=== PATIENT | female | born 1960 | race Caucasian/White ===

== ENCOUNTER 2016-11-07 09:12 | Observation (INO) | payer MEDICARE, MEDICAID ==
[2016-11-07 09:12] VITALS: BMI 31.8
--- NOTE | 2016-11-07 09:41 | ED PDOC ---
Arrival/HPI - General Time Seen by Provider: 11/07/16 09:19 Historian: Patient - History of Present Illness Narrative History of Present Illness (Text): 11/07/16 09:35 Alyson Jenkins is a 56 year old female, whose past medical history includes hypertension, hypercholesterolemia, who presents to the emergency department complaining of left sided chest pain since earlier this morning at around 04: 00. Patient reports never having this pain before and it becomes worse with movement. Patient denies any headache, abdominal pain, nausea, vomiting, diarrhea, shortness of breath, or fever. Patient notes the pain does not radiate anywhere else and states having a chronic cough. No other complaints were made. PMD: Dr. Ross Time/Duration: 4-6 hours Symptom Onset: Sudden Symptom Course: Unchanged Modifying Factors (Text): pain on palpation and worse with movement Associated Symptoms (Text): chronic cough. no acute symptoms Past Medical History - Provider Review Nursing Documentation Reviewed: Yes - Infectious Disease Hx of Infectious Diseases: None - Tetanus Immunization Tetanus Immunization: Unknown - Cardiac Hx Hypertension: Yes - Psychiatric Hx Psychophysiologic Disorder: No Hx Anxiety: No Hx Bipolar Disorder: No Hx Depression: Yes Hx Emotional Abuse: No Hx Hallucinations: No Hx Panic Disorder: No Hx Post Traumatic Stress Disorder: No Hx Psychosis: No Hx Physical Abuse: No Hx Schizophrenia: No Hx Sexual Abuse: No Hx Substance Use: No - Surgical History Hx Cholecystectomy: Yes - Anesthesia Hx Anesthesia: Yes Hx Anesthesia Reactions: No Hx Malignant Hyperthermia: No - Suicidal Assessment Feels Threatened In Home Enviroment: No Family/Social History - Physician Review Nursing Documentation Reviewed: Yes Family/Social History: Unknown Family HX Smoking Status: Never Smoked Hx Alcohol Use: No Hx Substance Use: No Hx Substance Use Treatment: No Allergies/Home Meds Allergies/Adverse Reactions: Allergies No Known Allergies Allergy (Verified 07/18/11 11:07) Home Medications: Home Meds Medication Instructions Recorded Confirmed Acetaminophen/Butalbital/Caf 1 tab PO DAILY 09/16/11 09/30/14 [Fioricet 325 mg-50 mg-40 mg] Bp Meds 09/16/11 09/30/14 Rosuvastatin Calcium [Crestor] 10 mg PO DAILY 09/16/11 09/30/14 Review of Systems - Review of Systems Constitutional: absent: Fevers Respiratory: Cough (chronic). absent: SOB Cardiovascular: Chest Pain (left sided ) Gastrointestinal: absent: Abdominal Pain, Diarrhea, Vomiting Genitourinary Female: absent: Dysuria, Frequency Neurological: absent: Headache Physical Exam Vital Signs Reviewed: Yes Vital Signs Temp Pulse Pulse Resp BP BP Pulse Ox 11/07/16 09:37 85 184/107 H 11/07/16 09:26 97.6 F 86 18 184/107 H 100 Temperature: Afebrile Blood Pressure: Hypertensive Pulse: Regular Respiratory Rate: Normal Appearance: Positive for: Well-Appearing, Non-Toxic, Comfortable Pain Distress: None Mental Status: Positive for: Alert and Oriented X 3 - Systems Exam Head: Present: Atraumatic, Normocephalic Pupils: Present: PERRL Extroacular Muscles: Present: EOMI Conjunctiva: Present: Normal Respiratory/Chest: Present: Clear to Auscultation, Good Air Exchange. No: Respiratory Distress, Accessory Muscle Use Cardiovascular: Present: Regular Rate and Rhythm, Normal S1, S2, Other (left sided tenderness). No: Murmurs Abdomen: Present: Normal Bowel Sounds. No: Tenderness, Distention, Peritoneal Signs Back: Present: Normal Inspection Upper Extremity: Present: Normal Inspection. No: Cyanosis, Edema Lower Extremity: Present: Normal Inspection. No: Edema Neurological: Present: GCS=15, CN II-XII Intact, Speech Normal Skin: Present: Warm, Dry, Normal Color. No: Rashes Psychiatric: Present: Alert, Oriented x 3, Normal Insight, Normal Concentration Medical Decision Making ED Course and Treatment: 11/07/16 Impression: 56 year old female with left sided chest wall tenderness. Differential Diagnosis included but are not limited to: costochondritis vs. pneumonia vs. ACS Plan: -- EKG -- Chest X-ray -- Urinalysis -- Aspirin -- Reassess and disposition Progress Notes: EKG: Ordered, reviewed, and independently interpreted the EKG. Rate : 85 BPM Rhythm : NSR Interpretation : No ST-segment elevations or depressions, no T-wave inversions, normal intervals. 11/07/16 10:[address] Eva Liriano who agreed to place on tele-observation. R/o ACS. Troponin negative. CXR nl. EKG reviewed. BP improved to 169/83. - Lab Interpretations Lab Results: 11/07/16 08:45 11/07/16 08:45 Lab Results 11/07/16 10:32: Urine Color Yellow, Urine Appearance Clear, Urine pH 7.0, Ur Specific [place] 1.010, Urine Protein Negative, Urine Glucose (UA) Negative, Urine Ketones Negative, Urine Blood Trace-intact H, Urine Nitrate Negative, Urine Bilirubin Negative, Urine Urobilinogen 0.2, Ur Leukocyte Esterase Negative , Urine RBC Negative, Urine WBC Negative, Ur Epithelial Cells 0 - 2 11/07/16 08:45: Sodium 141, Potassium 4.4, Chloride 103, Carbon Dioxide 30, Anion Gap 12, BUN 12, Creatinine 0.9, Est GFR ( Amer) > 60, Est GFR (Non- Af Amer) > 60, Random Glucose 111 H, Calcium 9.4, Magnesium 2.0, Total Bilirubin 0.9, AST 40 H, ALT 29, Alkaline Phosphatase 92, Lactate Dehydrogenase 658, Total Creatine Kinase 272 H, CK-MB (CK-2) 1.6, CK-MB (CK-2) % Cancelled, Troponin I < 0.01, Total Protein 7.8, Albumin 4.4, Globulin 3.5, Albumin/ Globulin Ratio 1.3 11/07/16 08:45: WBC 6.5, RBC 4.50, Hgb 13.5, Hct 40.6, MCV 90.2, MCH 30.0, MCHC 33.3, RDW 13.5, Plt Count 240, MPV 10.4, Gran % 47.3 L, Lymph % (Auto) 42.3 H, [place] % (Auto) 6.9 H, Eos % (Auto) 2.3, Baso % (Auto) 1.2, Gran # 3.08, Lymph # 2.8, [place] # 0.5, Eos # 0.2, Baso # 0.08 I have reviewed the lab results: Yes - RAD Interpretation Radiology Orders: 11/07/16 09:37 CHEST PORTABLE [RAD] Stat - EKG Interpretation Interpreted by ED Physician: Yes Type: 12 lead EKG - Medication Orders Current Medication Orders: Discontinued Medications Aspirin (Aspirin) 325 mg PO STAT STA Stop: 11/07/16 09:38 Last Admin: 11/07/16 09:55 Dose: 325 mg - Scribe Statement The provider has reviewed the documentation as recorded by the Roderick Pineda Provider Scribe Attestation: All medical record entries made by the Scribe were at my direction and personally dictated by me. I have reviewed the chart and agree that the record accurately reflects my personal performance of the history, physical exam, medical decision making, and the department course for this patient. I have also personally directed, reviewed, and agree with the discharge instructions and disposition. Disposition/Present on Arrival - Present on Arrival Any Indicators Present on Arrival: No History of DVT/PE: No History of Uncontrolled Diabetes: No Urinary Catheter: No History Surgical Site Infection Following: None - Disposition Have Diagnosis and Disposition been Completed?: Yes Diagnosis: Chest pain, Hypertensive urgency Disposition: HOSPITALIZED Disposition Time: 10:34 Patient Plan: Observation Condition: FAIR
[2016-11-07 10:04] LABS: BASO # 0.08 K/mm3 (0.0-2.0); BASO % 1.2 % (0.0-3.0); EOS # 0.2 (0.0-0.7); EOS % 2.3 % (1.5-5.0); GRAN # 3.08 (1.4-6.5); GRAN % 47.3 % (50.0-68.0); HEMATOCRIT 40.6 % (36.0-48.0); LYMPH # 2.8 (1.2-3.4); LYMPH % 42.3 % (22.0-35.0); MEAN CELL VOLUME 90.2 fl (80.0-105.0); MEAN CORPUSCULAR HGB CONC 33.3 g/dl (31.0-37.0); MEAN PLATELET VOLUME 10.4 fl (7.0-11.0); MONO # 0.5 (0.1-0.6); MONO % 6.9 % (1.0-6.0); RED CELL DISTRIBUTION WIDTH 13.5 % (11.5-14.5); WHITE BLOOD COUNT 6.5 10^3/ul (4.5-11.0)
[2016-11-07 10:07] LABS: ALB/GLOB RATIO 1.3 (1.1-1.8); ALKALINE PHOSPHATASE 92 U/L (38-126); ALT/SGPT 29 U/L (7-56); AST/SGOT 40 U/L (14-36); BILIRUBIN,TOTAL 0.9 mg/dL (0.2-1.3); BLOOD UREA NITROGEN 12 mg/dL (7-21); CALCIUM 9.4 mg/dL (8.4-10.5); CARBON DIOXIDE 30 mmol/L (21-33); CHLORIDE 103 mmol/L (98-107); GFR AFRICAN-AMERICAN > 60; GLUCOSE,RANDOM 111 mg/dL (70-110); SODIUM 141 mmol/L (132-148); TOTAL PROTEIN 7.8 g/dL (5.8-8.3)
[2016-11-07 10:12] LABS: POTASSIUM 4.4 mmol/L (3.6-5.0)
[2016-11-07 10:21] LABS: TROPONIN I < 0.01 ng/mL
[2016-11-07 10:37] LABS: URINE BILIRUBIN NEGATIVE (NEGATIVE); URINE BLOOD TRACE-INTACT (NEGATIVE); URINE GLUCOSE (UA) NEGATIVE (NEGATIVE); URINE KETONE NEGATIVE (NEGATIVE); URINE LEUKOCYTE ESTERASE NEGATIVE Leu/uL (NEGATIVE); URINE PROTEIN NEGATIVE mg/dL (<30 mg/dL); URINE UROBILINOGEN 0.2 E.U./dL (<1 E.U./dL)
[2016-11-07 10:38] LABS: URINE APPEARANCE CLEAR (CLEAR); URINE COLOR YELLOW (YELLOW)
[2016-11-07 10:42] LABS: URINE EPITHELIAL CELLS 0 - 2 /hpf (0-5); URINE RBC NEGATIVE /hpf (0-2); URINE WBC NEGATIVE /hpf (0-6)
--- NOTE | 2016-11-07 11:07 | RAD ---
HISTORY: chest pain COMPARISON: No prior. FINDINGS: LUNGS: No active pulmonary disease. PLEURA: No significant pleural effusion identified, no pneumothorax apparent. CARDIOVASCULAR: Normal. OSSEOUS STRUCTURES: No significant abnormalities. VISUALIZED UPPER ABDOMEN: Normal. OTHER FINDINGS: None. IMPRESSION: No active disease.
--- NOTE | 2016-11-07 11:19 | CP.PCM.HP ---
<Hi Bethea - Last Filed: 11/07/16 11:57> History of Present Illness - History of Present Illness History of Present Illness: Hi Bethea DO, PGY-1, Hospitalist Service 56 year old female with a past medical history of hypertension and dyslipidemia who presents with one day duration of chest pain. The pain is in the left parasternal region and left shoulder,pressure-like in quality, constant, scaled 7/10 in severity, worsened with left arm movement, and not associated with nausea, diaphoresis, exertion, dyspnea, or palpiations. Of note , patient has not been able to take her usual blood pressure medication for the past two weeks. She does report shortness of breath when going up 5 flights of stairs and states she has a chronic non-productive cough. PMD: Dr. Ross PMH: hypertension, dyslipidemia PSH: Cholecystectomy Allergies: NKDA Family History: DM II Medications: Contacted [facility] - Lisinopril 40 mg PO daily - Metoprolol Tartarate 25 mg PO daily - Losartan 100 mg PO daily - Hydrochlorothizaide 12.5 mg PO daily - Lipitor 40 HS daily - Patient was also prescribed 14 days of Clarithromycin 500/Amoxicillan x/ Omeprazole on 09/20/16 by a GI doctor, likely for H.pylori eradication Social: , stays at home, has 3 children, 1 normal vaginal delivery, 2 C- sections, denies tobacco, alcohol, or illicit drug use. Present on Admission - Present on Admission Any Indicators Present on Admission: No Review of Systems - Constitutional Constitutional: As Per HPI. absent: Anorexia, Daytime Sleepiness, Frequent Falls - EENT Eyes: absent: Blurred Vision, Discharge, Dry Eye Ears: absent: Decreased Hearing, Abnormal Hearing, Disequilibrium Nose/Mouth/Throat: absent: Change in Voice, Hoarsness, Mouth Lesions - Breasts Breasts: absent: Change in Shape, Nipple Inversion, Skin Changes - Cardiovascular Cardiovascular: Chest Pain. absent: Diaphoresis, Dyspnea, Irregular Heart Rhythm, Leg Edema - Respiratory Respiratory: Cough. absent: Dyspnea, Hemoptysis, Dyspnea on Exertion - Gastrointestinal Gastrointestinal: Dyspepsia, Heartburn. absent: Diarrhea - Genitourinary Genitourinary: absent: Change in Urinary Stream, Nocturia, Urinary Incontinence - Menstruation Menstruation: absent: Cycle Variable, No Menses for 6 Months - Musculoskeletal Musculoskeletal: As Per HPI - Integumentary Integumentary: absent: Alopecia, Changing Lesions, Skin Ulcer - Neurological Neurological: absent: Dizziness, Numbness, Paresthesias, Radicular Pain - Psychiatric Psychiatric: absent: Behavioral Changes, Depression, Homicidal Ideation - Endocrine Endocrine: absent: Change in Body Appearance, Change in Libido, Excessive Sweating - Hematologic/Lymphatic Hematologic: absent: Easy Bleeding, Easy Bruising, Lymphadenopathy Past Patient History - Infectious Disease Hx of Infectious Diseases: None - Tetanus Immunizations Tetanus Immunization: Unknown - Past Social History Smoking Status: Never Smoked - CARDIAC Hx Hypertension: Yes - PULMONARY Hx Respiratory Disorders: No - NEUROLOGICAL Hx Neurological Disorder: No - HEENT Hx HEENT Problems: No - RENAL Hx Chronic Kidney Disease: No - ENDOCRINE/METABOLIC Hx Endocrine Disorders: No - HEMATOLOGICAL/ONCOLOGICAL Hx Blood Disorders: No - INTEGUMENTARY Hx Dermatological Problems: No - MUSCULOSKELETAL/RHEUMATOLOGICAL Hx Musculoskeletal Disorders: No - GASTROINTESTINAL Hx Gastrointestinal Disorders: No - GENITOURINARY/GYNECOLOGICAL Hx Genitourinary Disorders: No - PSYCHIATRIC Hx Psychophysiologic Disorder: No Hx Anxiety: No Hx Bipolar Disorder: No Hx Depression: Yes Hx Emotional Abuse: No Hx Hallucinations: No Hx Panic Symptoms: No Hx Post Traumatic Stress Disorder: No Hx Psychosis: No Hx Physical Abuse: No Hx Schizophrenia: No Hx Sexual Abuse: No Hx Substance Use: No - SURGICAL HISTORY Hx Cholecystectomy: Yes - ANESTHESIA Hx Anesthesia: Yes Hx Anesthesia Reactions: No Hx Malignant Hyperthermia: No Meds Allergies/Adverse Reactions: Allergies Allergy/AdvReac Type Severity Reaction Status Date / Time No Known Allergies Allergy Verified 07/18/11 11:07 Physical Exam - Constitutional Appears: Well, No Acute Distress - Head Exam Head Exam: ATRAUMATIC, NORMOCEPHALIC - Eye Exam Eye Exam: Normal appearance - ENT Exam ENT Exam: Mucous Membranes Moist, Normal Oropharynx - Neck Exam Neck exam: Positive for: Normal Inspection. Negative for: Tenderness, Thyromegaly - Respiratory Exam Respiratory Exam: Clear to Auscultation Bilateral, NORMAL BREATHING PATTERN. absent: Rales - Cardiovascular Exam Cardiovascular Exam: RRR, +S1, +S2 - GI/Abdominal Exam GI & Abdominal Exam: Normal Bowel Sounds, Soft. absent: Rebound, Rigid - Extremities Exam Extremities exam: Positive for: normal capillary refill, normal inspection, pedal pulses present. Negative for: calf tenderness, pedal edema - Back Exam Back exam: NORMAL INSPECTION. absent: CVA tenderness (L), CVA tenderness (R) - Neurological Exam Neurological exam: Alert, CN II-XII Intact, Oriented x3 - Psychiatric Exam Psychiatric exam: Normal Affect, Normal Mood - Skin Skin Exam: Dry, Intact, Normal Color, Warm Results - Vital Signs Recent Vital Signs: Last Vital Signs Temp 97.6 F 11/07/16 09:26 Pulse 74 11/07/16 11:13 Resp 18 11/07/16 11:13 BP 167/95 H 11/07/16 11:13 Pulse Ox 99 11/07/16 11:13 - Labs Result Diagrams: 11/07/16 08:45 11/07/16 08:45 - EKG Data EKG shows normal: Sinus rhythm Rate: Normal Assessment & Plan - Assessment and Plan (Free Text) Assessment: 56 year old female with a past medical history of hypertension and dyslipidemia who presents with chest pain and left arm/shoulder pain. Initial EKG and troponins were negative for ACS. Patient will be admitted to telemetry for observation and further diagnostic testing. Cardiology is also consulted. Plan: 1) Chest pain r/o ACS - Initial EKG showed NSR without ST-T wave changes - Initial troponin was (-), will trend q8h x 2 -Cardiology, Dr. Ortiz, consulted - Transthoracic Echocardiogram ordered - Patient admitted to telemetry for cardiac monitoring - TSH, Lipid Panel, and HbA1c ordered 2) Hypertension - Metoprolol 25 PO daily - Losartan 100 mg PO daily - Lisinopril 40 mg - Hydrochlorothiazide 12.5 3) Dyslipidemia - Lipid panel ordered, pending results - Continue with home medication Lipitor 40 mg DIN 4) GI/DVT prophylaxis: Protonix and SCD - Date & Time Date: 11/07/16 Time: 12:10 <Fabien Liriano - Last Filed: 11/07/16 15:24> Results - Vital Signs Recent Vital Signs: Last Vital Signs Temp 97.6 F 11/07/16 12:34 Pulse 61 11/07/16 14:00 Resp 20 11/07/16 12:34 BP 181/106 H 11/07/16 13:13 Pulse Ox 98 11/07/16 12:34 - Labs Result Diagrams: 11/07/16 08:45 11/07/16 08:45 Labs: Laboratory Results - last 24 hr 11/07/16 11/07/16 11:55 11:55 Triglycerides 83 Cholesterol 222 H LDL Cholesterol Direct 158 H HDL Cholesterol 51 TSH 3rd Generation 1.65 Attending/Attestation - Attestation I have personally seen and examined this patient.: Yes I have fully participated in the care of the patient.: Yes I have reviewed all pertinent clinical information: Yes Notes (Text): I have seen and examined the patient at bedside. Agree with the note above with the following additions/ exceptions: Briefly this is 56 year old female with history of HTN, dyslipidemia, cholecystectomy who presented for evaluation of chest pain. First set of troponin is negative. EKG showed prolong QT however no ST or T wave abnormalities were seen. Echocardiogram is pending. Patient will be observed in telemetry floor. Will order d dimer, monitor serial cardiac iso and EKG. BP was noted to be high. Patient also has some musculoskeletal pain. Will start naproxen and flexeril prn. Will restart her antihypertensives. Upon discharge patient will follow up with Dr Ross. Dr Fabien Liriano
[2016-11-07 12:08] LABS: CHOLESTEROL 222 mg/dL (130-200)
[2016-11-07] MEDS: Pantoprazole 20 mg EC Tab PO SCH (12:11)
[2016-11-07] MEDS ORDERED: Pneumococcal 23-Valent Vaccine IM ONE (15:34)
--- NOTE | 2016-11-07 18:56 | CARD ---
APPROVED REPORT EXAM: Two-dimensional and M-mode echocardiogram with Doppler and color Doppler. INDICATION Chest Pain 2D DIMENSIONS Left Atrium (2D)4.0 (1.6-4.0cm)IVSd1.0 (0.7-1.1cm) LVDd4.6 (3.9-5.9cm)PWd0.9 (0.7-1.1cm) LVDs3.3 (2.5-4.0cm)FS (%) 28.7 % LVEF (%)55.4 (>50%) M-Mode DIMENSIONS Aortic Root3.20 (2.2-3.7cm)Aortic Cusp Exc.1.60 (1.5-2.0cm) Aortic Valve AoV Peak Qruxiixa271.0cm/Elena Peak GR.9mmHg Mitral Valve MV E Osxvenkt980.0cm/sMV A Sufveyif260.0cm/sE/A ratio1.1 TDI Lateral E' Peak V7.70cm/sMedial E' Peak V8.48cm/sE/Lateral E'14.8 E/Medial E'13.4 Pulmonary Valve PV Peak Bcfmvoox12.2cm/sPV Peak Grad.2mmHg Tricuspid Valve TR Peak Gpsxumix404sn/sRAP [id number] Peak Gr.19mmHg [id number] LEFT VENTRICLE The left ventricle is normal size. There is normal left ventricular wall thickness. The left ventricular function is normal. The left ventricular ejection fraction is within the normal range. There is normal LV segmental wall motion. Transmitral Doppler flow pattern is Grade I-abnormal relaxation pattern. RIGHT VENTRICLE The right ventricle is normal size. There is normal right ventricular wall thickness. The right ventricular systolic function is normal. ATRIA The left atrium is borderline dilated. The right atrium size is normal. AORTIC VALVE The aortic valve is normal in structure. There is trace aortic regurgitation. There is no aortic valvular stenosis. MITRAL VALVE The mitral valve is mildly thickened. Mitral regurgitation is mild. TRICUSPID VALVE The tricuspid valve is normal in structure. PULMONIC VALVE There is trace pulmonic valvular regurgitation. GREAT VESSELS The aortic root is normal in size. PERICARDIAL EFFUSION There is no pericardial effusion. <Conclusion> The left ventricle is normal size. There is normal left ventricular wall thickness. The left ventricular function is normal. The left ventricular ejection fraction is within the normal range. There is normal LV segmental wall motion. Transmitral Doppler flow pattern is Grade I-abnormal relaxation pattern. Mitral regurgitation is mild.
--- NOTE | 2016-11-07 20:42 | CARD ---
APPROVED REPORT EKG Measurement Heart [id number] NM 156P12 [id number] <Conclusion> Normal sinus rhythm Nonspecific T wave abnormality Abnormal ECG
--- NOTE | 2016-11-07 20:54 | CARD ---
APPROVED REPORT EKG Measurement Heart [id number] CT 144P44 [id number] <Conclusion> Normal sinus rhythm Prolonged QT Abnormal ECG
--- NOTE | 2016-11-07 21:07 | CON ---
CARDIOLOGY CONSULTATION DATE: REASON FOR CONSULTATION: Chest pain. HISTORY OF PRESENT ILLNESS: The patient is 56 years old female, who has history of hypertension, hyperlipidemia who presented because of left-sided chest pain radiating to left shoulder. The patient denies any associated diaphoresis. PAST MEDICAL HISTORY: The patient is unaware of any prior cardiac history in the past. FAMILY HISTORY: The patient is unaware of any significant family history for coronary artery disease. SOCIAL HISTORY: The patient is nonsmoker and nondrinker. REVIEW OF SYSTEMS: No fever or chills. No vomiting. No diarrhea. MEDICATIONS: Aspirin 81 mg once a day, Cozaar 100 mg once a day, Lipitor 40 mg once a day, Lopressor 25 mg once a day, hydrochlorothiazide 12.5 mg once a day, and Protonix 20 mg once a day. PHYSICAL EXAMINATION: GENERAL: The patient is a middle-aged female, who does not appear to be in acute distress. VITAL SIGNS: Blood pressure 159/92, heart rate 73, temperature 97.6, respiration 20. HEENT: Normocephalic. NECK: No JVD. CHEST: Clear. HEART: S1 and S2, regular. ABDOMEN: Soft. EXTREMITIES: No edema. LABORATORY DATA: Hemoglobin and hematocrit, white count and platelet count are within normal limits. SMA-7 is within normal limits except for glucose of 111. Two sets of troponins are negative. Total cholesterol is 222. LDL cholesterol is 158. Both are elevated. TSH level is within normal limits. D-Dimer is within normal limit. EKG revealed sinus rhythm. ASSESSMENT: 1. Chest pain, myocardial infarction is ruled out. 2. Hypertension. 3. Hyperlipidemia. CONDITIONS: Continue current aspirin 81 mg once a day, Cozaar 100 mg once a day, Lipitor is 40 mg once a day, Lopressor 25 mg once a day, hydrochlorothiazide 12.5 mg once day. We will review the echocardiographic study that was performed today. Marlo Ortiz MD
[2016-11-08 06:57] VITALS: O2SAT 99
[2016-11-08 07:48] LABS: ALB/GLOB RATIO 1.3 (1.1-1.8); ALKALINE PHOSPHATASE 79 U/L (38-126); ALT/SGPT 33 U/L (7-56); AST/SGOT 27 U/L (14-36); BILIRUBIN,TOTAL 0.9 mg/dL (0.2-1.3); BLOOD UREA NITROGEN 18 mg/dL (7-21); CALCIUM 9.3 mg/dL (8.4-10.5); CARBON DIOXIDE 29 mmol/L (21-33); CHLORIDE 102 mmol/L (98-107); GFR AFRICAN-AMERICAN > 60; GLUCOSE,RANDOM 116 mg/dL (70-110); POTASSIUM 4.1 mmol/L (3.6-5.0); SODIUM 142 mmol/L (132-148); TOTAL PROTEIN 7.1 g/dL (5.8-8.3)
[2016-11-08] MEDS: Pantoprazole 20 mg EC Tab PO SCH (08:47)
--- NOTE | 2016-11-08 10:54 | CP.PCM.DIS ---
<Hi Bethea - Last Filed: 11/08/16 15:13> Provider - Provider Date of Admission: 11/07/16 10:34 Attending physician: Anand Chaudhry MD Primary care physician: NO PRIMARY CARE PROVIDER Consults: Dr. Ortiz Cardiology Time Spent in preparation of Discharge (in minutes): 33 Hospital Course - Lab Results Lab Results: Most Recent Lab Values WBC 6.5 10^3/ul (4.5-11.0) 11/07/16 08:45 RBC 4.50 10^6/uL (3.5-6.1) 11/07/16 08:45 Hgb 13.5 g/dL (12.0-16.0) 11/07/16 08:45 Hct 40.6 % (36.0-48.0) 11/07/16 08:45 MCV 90.2 fl (80.0-105.0) 11/07/16 08:45 MCH 30.0 pg (25.0-35.0) 11/07/16 08:45 MCHC 33.3 g/dl (31.0-37.0) 11/07/16 08:45 RDW 13.5 % (11.5-14.5) 11/07/16 08:45 Plt Count 240 10^3/uL (120.0-450.0) 11/07/16 08:45 MPV 10.4 fl (7.0-11.0) 11/07/16 08:45 Gran % 47.3 % (50.0-68.0) L 11/07/16 08:45 Lymph % (Auto) 42.3 % (22.0-35.0) H 11/07/16 08:45 [place] % (Auto) 6.9 % (1.0-6.0) H 11/07/16 08:45 Eos % (Auto) 2.3 % (1.5-5.0) 11/07/16 08:45 Baso % (Auto) 1.2 % (0.0-3.0) 11/07/16 08:45 Gran # 3.08 (1.4-6.5) 11/07/16 08:45 Lymph # 2.8 (1.2-3.4) 11/07/16 08:45 [place] # 0.5 (0.1-0.6) 11/07/16 08:45 Eos # 0.2 (0.0-0.7) 11/07/16 08:45 Baso # 0.08 K/mm3 (0.0-2.0) 11/07/16 08:45 D-Dimer, Quantitative 0.46 mg/L FEU (0-0.50) 11/07/16 15:30 Sodium 142 mmol/L (132-148) 11/08/16 06:05 Potassium 4.1 mmol/L (3.6-5.0) 11/08/16 06:05 Chloride 102 mmol/L (98-107) 11/08/16 06:05 Carbon Dioxide 29 mmol/L (21-33) 11/08/16 06:05 Anion Gap 15 (10-20) 11/08/16 06:05 BUN 18 mg/dL (7-21) 11/08/16 06:05 Creatinine 1.1 mg/dL (0.5-1.4) 11/08/16 06:05 Est GFR ( Amer) > 60 11/08/16 06:05 Est GFR (Non-Af Amer) 52 11/08/16 06:05 Random Glucose 116 mg/dL (70-110) H 11/08/16 06:05 Hemoglobin A1c 5.7 % (4.2-6.5) 11/07/16 11:55 Calcium 9.3 mg/dL (8.4-10.5) 11/08/16 06:05 Magnesium 2.0 mg/dL (1.7-2.2) 11/07/16 08:45 Total Bilirubin 0.9 mg/dL (0.2-1.3) 11/08/16 06:05 AST 27 U/L (14-36) 11/08/16 06:05 ALT 33 U/L (7-56) 11/08/16 06:05 Alkaline Phosphatase 79 U/L (38-126) 11/08/16 06:05 Lactate Dehydrogenase 658 U/L (333-699) 11/07/16 08:45 Total Creatine Kinase 272 U/L (35-230) H 11/07/16 08:45 CK-MB (CK-2) 1.6 ng/mL (0.0-3.6) 11/07/16 08:45 CK-MB (CK-2) % Cancelled 11/07/16 08:45 Troponin I < 0.01 ng/mL 11/07/16 15:30 Total Protein 7.1 g/dL (5.8-8.3) 11/08/16 06:05 Albumin 4.0 g/dL (3.0-4.8) 11/08/16 06:05 Globulin 3.1 gm/dL 11/08/16 06:05 Albumin/Globulin Ratio 1.3 (1.1-1.8) 11/08/16 06:05 Triglycerides 83 mg/dL (35-160) 11/07/16 11:55 Cholesterol 222 mg/dL (130-200) H 11/07/16 11:55 LDL Cholesterol Direct 158 mg/dL (0-129) H 11/07/16 11:55 HDL Cholesterol 51 mg/dL (29-60) 11/07/16 11:55 TSH 3rd Generation 1.65 mIU/mL (0.46-4.68) 11/07/16 11:55 Urine Color Yellow (YELLOW) 11/07/16 10:32 Urine Appearance Clear (CLEAR) 11/07/16 10:32 Urine pH 7.0 (4.7-8.0) 11/07/16 10:32 Ur Specific [place] 1.010 (1.005-1.035) 11/07/16 10:32 Urine Protein Negative mg/dL (<30 mg/dL) 11/07/16 10:32 Urine Glucose (UA) Negative mg/dL (NEGATIVE) 11/07/16 10:32 Urine Ketones Negative mg/dL (NEGATIVE) 11/07/16 10:32 Urine Blood Trace-intact (NEGATIVE) H 11/07/16 10:32 Urine Nitrate Negative (NEGATIVE) 11/07/16 10:32 Urine Bilirubin Negative (NEGATIVE) 11/07/16 10:32 Urine Urobilinogen 0.2 E.U./dL (<1 E.U./dL) 11/07/16 10:32 Ur Leukocyte Esterase Negative [place]/uL (NEGATIVE) 11/07/16 10:32 Urine RBC Negative /hpf (0-2) 11/07/16 10:32 Urine WBC Negative /hpf (0-6) 11/07/16 10:32 Ur Epithelial Cells 0 - 2 /hpf (0-5) 11/07/16 10:32 - Hospital Course Hospital Course: Hi Bethea DO, PGY-1, Hospitalist Service 56 year old female with a past medical history of hypertension and dyslipidemia who presents with chest pain and left arm/shoulder pain. Initial EKG and troponins x 2 were negative for ACS. On admission, the patient was also found to have an elevated blood pressure that was controlled by restarting her home anti-hypertensives. Patient was admitted to telemetry for observation and further diagnostic testing. Cardiology was also consulted. TTE was essentially normal. TSH and HbgA1c were within normal limits. Lipid panel confirmed dyslipidemia and the patient was discharged with the below written instruction, with her home medication re-prescribed,and given Protonix for GERD and Motrin PRN for musculoskeletal pain. - Date & Time of H&P Date of H&P: 11/08/16 Time of H&P: 11:30 Discharge Exam - Head Exam Head Exam: ATRAUMATIC, NORMOCEPHALIC - Eye Exam Eye Exam: EOMI, Normal appearance, PERRL Pupil Exam: NORMAL ACCOMODATION - ENT Exam ENT Exam: Mucous Membranes Moist, Normal Oropharynx - Neck Exam Neck exam: Normal Inspection - Respiratory Exam Respiratory Exam: Clear to PA & Lateral, NORMAL BREATHING PATTERN. absent: Rales - Cardiovascular Exam Cardiovascular Exam: RRR, +S1, +S2 - GI/Abdominal Exam GI & Abdominal Exam: Normal Bowel Sounds, Soft. absent: Guarding, Rebound - Extremities Exam Extremities exam: normal capillary refill, normal inspection, pedal pulses present - Back Exam Back exam: NORMAL INSPECTION. absent: CVA tenderness (L), CVA tenderness (R) - Neurological Exam Neurological exam: Alert, CN II-XII Intact, Oriented x3 - Psychiatric Exam Psychiatric exam: Normal Affect, Normal Mood - Skin Skin Exam: Dry, Intact, Normal Color, Warm - Additional Findings Additional findings: tenderness to palpation of the left parasternal border and epigastric region Discharge Plan - Discharge Medications Prescriptions: Losartan/Hydrochlorothiazide [Hyzaar 100-12.5 Tablet] 1 tab PO DAILY #30 tablet Metoprolol Tartrate [Lopressor] 25 mg PO DAILY #30 tab Ibuprofen [Motrin] 400 mg PO BID #12 tab Pantoprazole Sodium [Protonix] 40 mg PO DAILY #30 ect - Follow Up Plan Condition: FAIR Disposition: HOME/ ROUTINE Instructions: Chest Pain (DC), Hypertension (DC) Additional Instructions: 1) Follow-up with your PMD within one week. 2) Take Protonix first thing in the morning 1 hour before meal with 10 Oz of water. 3) Motrin 400 mg BID after a meal. Referrals: PCP,NO [Primary Care Provider] - <Anand Chaudhry - Last Filed: 11/08/16 17:37> Provider - Provider Date of Admission: 11/07/16 10:34 Attending physician: Anand Chaudhry MD Primary care physician: NO PRIMARY CARE PROVIDER Hospital Course - Lab Results Lab Results: Most Recent Lab Values WBC 7.1 10^3/ul (4.5-11.0) 11/08/16 11:30 RBC 4.60 10^6/uL (3.5-6.1) 11/08/16 11:30 Hgb 13.8 g/dL (12.0-16.0) 11/08/16 11:30 Hct 41.5 % (36.0-48.0) 11/08/16 11:30 MCV 90.2 fl (80.0-105.0) 11/08/16 11:30 MCH 30.0 pg (25.0-35.0) 11/08/16 11:30 MCHC 33.3 g/dl (31.0-37.0) 11/08/16 11:30 RDW 13.5 % (11.5-14.5) 11/08/16 11:30 Plt Count 244 10^3/uL (120.0-450.0) 11/08/16 11:30 MPV 10.4 fl (7.0-11.0) 11/08/16 11:30 Gran % 46.6 % (50.0-68.0) L 11/08/16 11:30 Lymph % (Auto) 45.7 % (22.0-35.0) H 11/08/16 11:30 [place] % (Auto) 4.9 % (1.0-6.0) 11/08/16 11:30 Eos % (Auto) 2.1 % (1.5-5.0) 11/08/16 11:30 Baso % (Auto) 0.7 % (0.0-3.0) 11/08/16 11:30 Gran # 3.31 (1.4-6.5) 11/08/16 11:30 Lymph # 3.3 (1.2-3.4) 11/08/16 11:30 [place] # 0.4 (0.1-0.6) 11/08/16 11:30 Eos # 0.2 (0.0-0.7) 11/08/16 11:30 Baso # 0.05 K/mm3 (0.0-2.0) 11/08/16 11:30 D-Dimer, Quantitative 0.46 mg/L FEU (0-0.50) 11/07/16 15:30 Sodium 142 mmol/L (132-148) 11/08/16 06:05 Potassium 4.1 mmol/L (3.6-5.0) 11/08/16 06:05 Chloride 102 mmol/L (98-107) 11/08/16 06:05 Carbon Dioxide 29 mmol/L (21-33) 11/08/16 06:05 Anion Gap 15 (10-20) 11/08/16 06:05 BUN 18 mg/dL (7-21) 11/08/16 06:05 Creatinine 1.1 mg/dL (0.5-1.4) 11/08/16 06:05 Est GFR ( Amer) > 60 11/08/16 06:05 Est GFR (Non-Af Amer) 52 11/08/16 06:05 Random Glucose 116 mg/dL (70-110) H 11/08/16 06:05 Hemoglobin A1c 5.7 % (4.2-6.5) 11/07/16 11:55 Calcium 9.3 mg/dL (8.4-10.5) 11/08/16 06:05 Magnesium 2.0 mg/dL (1.7-2.2) 11/07/16 08:45 Total Bilirubin 0.9 mg/dL (0.2-1.3) 11/08/16 06:05 AST 27 U/L (14-36) 11/08/16 06:05 ALT 33 U/L (7-56) 11/08/16 06:05 Alkaline Phosphatase 79 U/L (38-126) 11/08/16 06:05 Lactate Dehydrogenase 658 U/L (333-699) 11/07/16 08:45 Total Creatine Kinase 272 U/L (35-230) H 11/07/16 08:45 CK-MB (CK-2) 1.6 ng/mL (0.0-3.6) 11/07/16 08:45 CK-MB (CK-2) % Cancelled 11/07/16 08:45 Troponin I < 0.01 ng/mL 11/07/16 15:30 Total Protein 7.1 g/dL (5.8-8.3) 11/08/16 06:05 Albumin 4.0 g/dL (3.0-4.8) 11/08/16 06:05 Globulin 3.1 gm/dL 11/08/16 06:05 Albumin/Globulin Ratio 1.3 (1.1-1.8) 11/08/16 06:05 Triglycerides 83 mg/dL (35-160) 11/07/16 11:55 Cholesterol 222 mg/dL (130-200) H 11/07/16 11:55 LDL Cholesterol Direct 158 mg/dL (0-129) H 11/07/16 11:55 HDL Cholesterol 51 mg/dL (29-60) 11/07/16 11:55 TSH 3rd Generation 1.65 mIU/mL (0.46-4.68) 11/07/16 11:55 Urine Color Yellow (YELLOW) 11/07/16 10:32 Urine Appearance Clear (CLEAR) 11/07/16 10:32 Urine pH 7.0 (4.7-8.0) 11/07/16 10:32 Ur Specific [place] 1.010 (1.005-1.035) 11/07/16 10:32 Urine Protein Negative mg/dL (<30 mg/dL) 11/07/16 10:32 Urine Glucose (UA) Negative mg/dL (NEGATIVE) 11/07/16 10:32 Urine Ketones Negative mg/dL (NEGATIVE) 11/07/16 10:32 Urine Blood Trace-intact (NEGATIVE) H 11/07/16 10:32 Urine Nitrate Negative (NEGATIVE) 11/07/16 10:32 Urine Bilirubin Negative (NEGATIVE) 11/07/16 10:32 Urine Urobilinogen 0.2 E.U./dL (<1 E.U./dL) 11/07/16 10:32 Ur Leukocyte Esterase Negative [place]/uL (NEGATIVE) 11/07/16 10:32 Urine RBC Negative /hpf (0-2) 11/07/16 10:32 Urine WBC Negative /hpf (0-6) 11/07/16 10:32 Ur Epithelial Cells 0 - 2 /hpf (0-5) 11/07/16 10:32 Attending/Attestation - Attestation I have personally seen and examined this patient.: Yes I have fully participated in the care of the patient.: Yes I have reviewed all pertinent clinical information, including history, physical exam and plan: Yes Notes (Text): 11/08/16 17:33 Attending note: Patient seen and examined with resident. Patient is a 56 year old female with history of HTN, dyslipidemia, cholecystectomy who presented for evaluation of chest pain. left side of the chest is tender to touch. Most likely musculoskeletal pain. Cardiac enzymes 3 negative. Echocardiogram normal. Cardiology evaluation with Dr. Ortiz appreciated. Cleared by cardiology for discharge. Motrin for 2 days recommended. History of GERD/H. pylori treatment; Protonix prescription was given. Prescription for antihypertensives given. Upon discharge the patient will follow-up with PMD Dr. Claus Ross. Diagnosis; Atypical chest pain Hypertension GERD
[2016-11-08 11:37] LABS: BASO # 0.05 K/mm3 (0.0-2.0); BASO % 0.7 % (0.0-3.0); EOS # 0.2 (0.0-0.7); EOS % 2.1 % (1.5-5.0); GRAN # 3.31 (1.4-6.5); GRAN % 46.6 % (50.0-68.0); HEMATOCRIT 41.5 % (36.0-48.0); LYMPH # 3.3 (1.2-3.4); LYMPH % 45.7 % (22.0-35.0); MEAN CELL VOLUME 90.2 fl (80.0-105.0); MEAN CORPUSCULAR HGB CONC 33.3 g/dl (31.0-37.0); MEAN PLATELET VOLUME 10.4 fl (7.0-11.0); MONO # 0.4 (0.1-0.6); MONO % 4.9 % (1.0-6.0); RED CELL DISTRIBUTION WIDTH 13.5 % (11.5-14.5); WHITE BLOOD COUNT 7.1 10^3/ul (4.5-11.0)
[2016-11-08 13:09] VITALS: BP 149/93; PULSE 63; RESP 19; TEMP 98.3
--- NOTE | 2016-11-08 13:17 | PN ---
SUBJECTIVE: The patient denies any shortness of breath. She does report sharp chest discomfort that increases with deep breathing. PHYSICAL EXAMINATION: VITAL SIGNS: Blood pressure 119/64, heart rate 78, temperature 98.6, and respirations 20. HEENT: Normocephalic. CHEST: Clear. HEART: S1 and S2 regular. EXTREMITIES: No edema. LABORATORY DATA: Hemoglobin, hematocrit, white count, and platelet count are within normal limits. SMA-7 is within normal limits except for glucose of 116. Echocardiographic study revealed normal ventricular size, wall thickness and ejection fraction with grade I abnormal relaxation pattern. ASSESSMENT: 1. Atypical chest pain, myocardial infarction is ruled out. 2. Hypertension. RECOMMENDATIONS: The patient can be discharged on current aspirin, Cozaar, Lipitor, Lopressor, and hydrochlorothiazide. An outpatient stress test should be considered while the patient is following her physician. Marlo Ortiz MD Job # [id number]
== END 2016-11-08 16:35 | disposition home or self-care (01) ==
LOC: ED 09:12 → ERH 10:34 → 2RSO 12:43
PROVIDERS: ADMIT Hospitalist; ATTEND Internal Medicine
DX: R07.89 Other chest pain (principal); I10 Essential (primary) hypertension; K21.9 Gastro-esophageal reflux disease without esophagitis; I16.0 Hypertensive urgency; E78.5 Hyperlipidemia, unspecified; E78.00 Pure hypercholesterolemia, unspecified; E11.9 Type 2 diabetes mellitus without complications; Z79.82 Long term (current) use of aspirin; Z79.899 Other long term (current) drug therapy; Z90.49 Acquired absence of other specified parts of digestive tract; R05 Cough; F32.89 Other specified depressive episodes; R40.2412 Glasgow coma scale score 13-15, at arrival to emergency department
CPT/HCPCS: 36415; 71010; 80053; 80061; 81001; 82550; 82553; 83036; 83615; 83735; 84443; 84484; 85025; 85378; 93005; 93306; 99285; G0378

== ENCOUNTER 2018-04-10 11:50 | Outpatient (CLI) | payer MEDICARE, MEDICAID | END 2018-04-10 11:51 | disposition home or self-care (01) | LOC: LAB 11:50 ==

== ENCOUNTER → 2018-05-29 | Outpatient (CLI) | payer MEDICARE | LOC: RAD 10:50 ==

== ENCOUNTER 2018-07-03 10:16 | Outpatient (CLI) | payer MEDICARE, MEDICAID | END 2018-07-03 10:17 | disposition home or self-care (01) | LOC: RAD 10:16 ==

== ENCOUNTER 2018-07-14 11:00 | Inpatient (IN) | payer MEDICARE, MEDICAID ==
[2018-07-14 11:06] VITALS: BMI 26.5
[2018-07-14 11:34] LABS: BASO # 0.04 K/mm3 (0.0-2.0); BASO % 0.2 % (0.0-3.0); EOS # 0.1 (0.0-0.7); EOS % 0.3 % (1.5-5.0); HEMOGLOBIN 12.6 g/dL (12.0-16.0); LYMPH # 3.5 (1.2-3.4); LYMPH % 20.1 % (22.0-35.0); MEAN CELL VOLUME 88.5 fl (80.0-105.0); MEAN CORPUSCULAR HEMOGLOBIN 30.1 pg (25.0-35.0); MEAN PLATELET VOLUME 10.4 fl (7.0-11.0); MONO # 1.6 (0.1-0.6); MONO % 9.2 % (1.0-6.0); RBC 4.19 10^6/uL (3.5-6.1); RED CELL DISTRIBUTION WIDTH 13.5 % (11.5-14.5); WHITE BLOOD COUNT 17.6 10^3/uL (4.5-11.0)
[2018-07-14 11:43] LABS: ALB/GLOB RATIO 1.1 (1.1-1.8); ALBUMIN 4.2 g/dL (3.0-4.8); ALT/SGPT 29 U/L (7-56); AST/SGOT 63 U/L (14-36); BLOOD UREA NITROGEN 23 mg/dL (7-21); CALCIUM 9.1 mg/dL (8.4-10.5); GFR NON-AFRICAN AMERICAN 39
[2018-07-14 11:53] LABS: TROPONIN I < 0.01 ng/mL
--- NOTE | 2018-07-14 11:59 | ED PDOC ---
Arrival/HPI - General Chief Complaint: Chest Pain Time Seen by Provider: 07/14/18 11:03 Historian: Patient - History of Present Illness Narrative History of Present Illness (Text): 07/14/18 11:35 A 58 year old female, whose past medical history includes hypertension, hypercholesterolemia, presents to the emergency department complaining of dry cough for the past 4 days. Patient reports experiencing associated chest pain only when coughing and epistaxis due to dryness. Patient reports she does not smoke. Patient denies any fever, shortness of breath, vomiting, headache, dizziness, or any other complaints. PMD: Dr. Gonzalez Time/Duration: < week (4 days) Symptom Onset: Gradual Symptom Course: Unchanged Activities at Onset: Light Context: Home Past Medical History - Provider Review Nursing Documentation Reviewed: Yes - Infectious Disease Hx of Infectious Diseases: None - Tetanus Immunization Tetanus Immunization: Unknown - Reproductive Menopause: Yes - Cardiac Hx Cardiac Disorders: Yes Hx Hypertension: Yes - Pulmonary Hx Respiratory Disorders: Yes Other/Comment: CHRONIC DRY COUGH - Neurological Hx Neurological Disorder: No - HEENT Hx HEENT Disorder: No - Renal Hx Renal Disorder: No - Endocrine/Metabolic Hx Endocrine Disorders: No - Hematological/Oncological Hx Blood Disorders: Yes Hx Anemia: Yes - Integumentary Hx Dermatological Disorder: No - Musculoskeletal/Rheumatological Hx Musculoskeletal Disorders: No - Gastrointestinal Hx Gastrointestinal Disorders: Yes (H.PYLORI) Hx Gall Bladder Disease: Yes (CHOLECYSTECTOMY) - Genitourinary/Gynecological Hx Genitourinary Disorders: No Other/Comment: 2 C SECTIONS - Psychiatric Hx Psychophysiologic Disorder: Yes Hx Anxiety: No Hx Bipolar Disorder: No Hx Depression: Yes Hx Emotional Abuse: No Hx Hallucinations: No Hx Panic Disorder: No Hx Post Traumatic Stress Disorder: No Hx Psychosis: No Hx Physical Abuse: No Hx Schizophrenia: No Hx Sexual Abuse: No Hx Substance Use: No - Surgical History Hx Cholecystectomy: Yes - Anesthesia Hx Anesthesia: Yes Hx Anesthesia Reactions: No Hx Malignant Hyperthermia: No - Suicidal Assessment Feels Threatened In Home Enviroment: No Family/Social History - Physician Review Nursing Documentation Reviewed: Yes Family/Social History: No Known Family HX Smoking Status: Never Smoked Hx Alcohol Use: No Hx Substance Use: No Hx Substance Use Treatment: No Allergies/Home Meds Allergies/Adverse Reactions: Allergies No Known Allergies Allergy (Verified 07/18/11 11:07) Review of Systems - Review of Systems Constitutional: absent: Fevers Respiratory: Cough. absent: SOB Cardiovascular: Chest Pain (chest pain when coughing) Gastrointestinal: absent: Vomiting Neurological: absent: Headache, Dizziness Physical Exam Vital Signs Reviewed: Yes Vital Signs Temp Pulse Resp BP Pulse Ox 07/14/18 11:09 98.4 F 92 H 16 120/79 94 L Temperature: Afebrile Blood Pressure: Normal Pulse: Tachycardic Respiratory Rate: Normal Appearance: Positive for: Well-Appearing, Non-Toxic, Comfortable Mental Status: Positive for: Alert and Oriented X 3 - Systems Exam Head: Present: Atraumatic, Normocephalic Pupils: Present: PERRL Extroacular Muscles: Present: EOMI Conjunctiva: Present: Normal Respiratory/Chest: Present: Clear to Auscultation, Good Air Exchange. No: Respiratory Distress, Accessory Muscle Use Cardiovascular: Present: Regular Rate and Rhythm, Normal S1, S2. No: Murmurs Abdomen: No: Tenderness, Distention, Peritoneal Signs Upper Extremity: Present: Normal Inspection. No: Cyanosis, Edema Lower Extremity: Present: Normal Inspection. No: Edema Neurological: Present: GCS=15, CN II-XII Intact, Speech Normal Skin: Present: Warm, Dry, Normal Color. No: Rashes Psychiatric: Present: Alert, Oriented x 3, Normal Insight, Normal Concentration Medical Decision Making ED Course and Treatment: 07/14/18 11:35 Impression: 58 year old female presenting to the emergency room complaining of cough. Plan: -- EKG -- Labs -- Chest X-ray -- Reassess and disposition Prior Visits: Notes and results from previous visits were reviewed. Progress Notes: 07/14/18 13:32 Procedure: Chest X-ray Dictator: Yeyo Morales Impression: No active disease. 07/14/18 15:16 Procedure: Abdomen/Pelvis CT Dictator: Yeyo Morales Impression: No acute abdominal pelvic pathology. - Lab Interpretations Lab Results: Troponin I < 0.01 ng/mL 07/14/18 11:22 Total Bilirubin 1.6 mg/dL (0.2-1.3) H 07/14/18 11:22 AST 63 U/L (14-36) H D 07/14/18 11:22 ALT 29 U/L (7-56) 07/14/18 11:22 Alkaline Phosphatase 115 U/L (38-126) 07/14/18 11:22 Total Protein 8.2 g/dL (5.8-8.3) 07/14/18 11:22 Albumin 4.2 g/dL (3.0-4.8) 07/14/18 11:22 Globulin 4.0 gm/dL 07/14/18 11:22 Albumin/Globulin Ratio 1.1 (1.1-1.8) 07/14/18 11:22 - RAD Interpretation Radiology Orders: 07/14/18 11:16 CHEST PORTABLE [RAD] Stat - Scribe Statement The provider has reviewed the documentation as recorded by the Roderick Elliott All medical record entries made by the Jcibdarrell were at my direction and personally dictated by me. I have reviewed the chart and agree that the record accurately reflects my personal performance of the history, physical exam, medical decision making, and the department course for this patient. I have also personally directed, reviewed, and agree with the discharge instructions and disposition. Disposition/Present on Arrival - Present on Arrival Any Indicators Present on Arrival: No History of DVT/PE: No History of Uncontrolled Diabetes: No Urinary Catheter: No History of Decub. Ulcer: No History Surgical Site Infection Following: None - Disposition Have Diagnosis and Disposition been Completed?: Yes Diagnosis: Rhabdomyolysis, Acute renal failure, UTI (urinary tract infection) Disposition: HOSPITALIZED Disposition Time: 14:45 Condition: STABLE
[2018-07-14 12:12] LABS: CK MB% 0.3 % (2.5-3.0); CK-MB 5.9 ng/mL (0.0-3.6)
--- NOTE | 2018-07-14 12:14 | RAD ---
Date of service: 07/14/2018 HISTORY: chest pain COMPARISON: Chest radiograph dated 11/07/2016. TECHNIQUE: 1 view obtained. FINDINGS: LUNGS: No active pulmonary disease. PLEURA: No significant pleural effusion identified, no pneumothorax apparent. CARDIOVASCULAR: Aortic atherosclerotic calcifications. Cardiomediastinal silhouette within normal limits. OSSEOUS STRUCTURES: Unchanged. VISUALIZED UPPER ABDOMEN: Right upper quadrant surgical clips. OTHER FINDINGS: None. IMPRESSION: No active disease.
[2018-07-14] MEDS ORDERED: Sodium Chloride 0.9% 1,000 ML IV ONE (13:15)
--- NOTE | 2018-07-14 13:53 | CT ---
Date of service: 07/14/2018 PROCEDURE: CT Abdomen and Pelvis without intravenous contrast HISTORY: elevated LFT's and CPK COMPARISON: CT scan of the abdomen pelvis dated 07/03/2012 TECHNIQUE: Contiguous images were obtained from the domes of the diaphragms to the upper thighs without the administration of intravenous contrast. Oral contrast was not administered. Radiation dose: Total exam DLP = 491.21 mGy-cm. This CT exam was performed using one or more of the following dose reduction techniques: Automated exposure control, adjustment of the mA and/or kV according to patient size, and/or use of iterative reconstruction technique. FINDINGS: LOWER THORAX: Unremarkable. LIVER: Unremarkable. No gross lesion or ductal dilatation. GALLBLADDER AND BILE DUCTS: Prior cholecystectomy with surgical clips in place PANCREAS: Unremarkable. No gross lesion or ductal dilatation. SPLEEN: Unremarkable. ADRENALS: Unremarkable. No mass. KIDNEYS AND URETERS: Unremarkable. No hydronephrosis. No solid mass. VASCULATURE: Unremarkable. No aortic aneurysm. No aortic atherosclerotic calcification or mural plaque present. BOWEL: Unremarkable. No obstruction. No gross mural thickening. APPENDIX: Unremarkable. Normal appendix. PERITONEUM: Unremarkable. No free fluid. No free air. LYMPH NODES: Unremarkable. No enlarged lymph nodes. BLADDER: Unremarkable. REPRODUCTIVE: Bilateral fallopian tube occlusion devices. BONES: No acute fracture. OTHER FINDINGS: None. IMPRESSION: No acute abdominal pelvic pathology. Stable findings as above.
[2018-07-14 14:27] LABS: URINE BILIRUBIN SMALL (NEGATIVE); URINE BLOOD MODERATE (NEGATIVE); URINE GLUCOSE (UA) NEGATIVE (NEGATIVE); URINE LEUKOCYTE ESTERASE TRACE Leu/uL (NEGATIVE); URINE PROTEIN 30 mg/dL (<30 mg/dL)
[2018-07-14 14:28] LABS: URINE APPEARANCE CLEAR (CLEAR); URINE COLOR YELLOW (YELLOW)
[2018-07-14 14:39] LABS: URINE BACTERIA LARGE /hpf; URINE RBC 0 - 2 /hpf (0-2); URINE WBC 0 - 2 /hpf (0-6)
[2018-07-14] MEDS ORDERED: cefTRIAXone 1 gm 1 GM/100 ML BAG IVPB STA (14:55)
[2018-07-14] MEDS ORDERED: Potassium Chloride 20 mEq ER Tab PO ONE (18:54)
[2018-07-14] MEDS: guaiFENesin 100 mg/5 ml Syrup UD PO PRN (20:06)
[2018-07-14] MEDS: Sodium Chloride 0.45% 1,000 ML IV SCH (20:06)
[2018-07-14] MEDS ORDERED: Pneumococcal 23-Valent Vaccine IM ONE (20:56)
--- NOTE | 2018-07-14 21:47 | HP ---
DATE OF EXAM: 07/14/2018 HISTORY OF PRESENT ILLNESS: I was called by the ER to admit this young lady to the hospital. She came in with a dry cough, which started 4 days ago. Also chest pain with dry cough and bloody nose to the dryness. She is not feeling well. PAST MEDICAL HISTORY: She has a past medical history of hypertension, high cholesterol, chronic dry cough, anemia, H. pylori, cholecystectomy, and 2 C-sections. FAMILY HISTORY: Unknown. SOCIAL HISTORY: No smoking. No drinking. No drugs. ALLERGIES: NO KNOWN DRUG ALLERGIES. REVIEW OF SYSTEMS: No vision or hearing changes. No fevers. There is a cough, which is persistent. No shortness of breath. There is chest pain with cough. No pressure. No nausea, vomiting, constipation, or diarrhea. No arms or leg issues. No headache or dizziness. No skin issues. No neurological issues that she knows of. PHYSICAL EXAMINATION: GENERAL: She is a well-appearing, nontoxic, comfortable, alert, and oriented x3. VITAL SIGNS: 98.4 temperature, 92 pulse, 16 respiratory rate, 120/79 blood pressure, and 94% O2 saturation. HEENT: Head is atraumatic and normocephalic. Extraocular muscles are intact. Pupils equally reactive to light. LUNGS: Decreased breath sounds, but clear to auscultation. No wheezes. No rhonchi. No rales. HEART: Regular rate. Normal S1 and S2. ABDOMEN: Soft and nontender. Positive bowel sounds. No guarding. No rebound. No CVA tenderness. EXTREMITIES: No edema. NEUROLOGIC: GCS is 15. Cranial nerves II through XII grossly intact. Speech is normal. Alert and oriented x3. Normal insight. Thyroid midline. No palpable appreciable lymphadenopathy. No meningeal signs. SKIN: Warm and dry. No apparent rashes or ulcers. LABORATORY DATA: She had multiple tests done. She has 17.6 white count which is surprising, 12.6 hemoglobin, 37.5 hematocrit with 276 platelets. She has 136 sodium, potassium 3.3, we will replace the potassium, BUN 23, creatinine 1.4 which is new to her, I gave her IV fluids. GFR is 39, we will see if tomorrow labs are good . Sugar is 135, we will keep an eye on her sugar. Calcium is 9.1, magnesium 1.9, and total bili is 1.6. AST is 63, ALT is 59, and alk phos is 115. Lactate dehydrogenase is 640. Total creatine kinase is very high 2227, see if the IV fluids might not help, but the troponin I is less than 0.01 and total protein is 8.2. Urine was also trace leukocytes, but large bacteria, we are treating like that urinary tract infection. Chest x-ray with no acute disease. She had a CAT scan of the abdomen and pelvis, which is stable. No acute abdominal or pelvis pathology. ASSESSMENT AND PLAN: She takes aspirin, Cozaar, Lipitor, metoprolol, hydrochlorothiazide, and ibuprofen at home. We will check her labs tomorrow. She will have a consult with Cardiology and Infectious Disease. She will be on Rocephin, IV fluids, Protonix, and cough medicines. Chest x-ray was clear. Alysonmanju Banuelosa who has got 17,000 white count, lot of bacteria in the urine Total creatinine kinase is very varun high 2227 with elevated kidney function and acute kidney injury. Henry Conte DO MTDRomaine
[2018-07-15 08:02] LABS: HEMOGLOBIN 12.6 g/dL (12.0-16.0); MEAN CELL VOLUME 89.2 fl (80.0-105.0); MEAN CORPUSCULAR HEMOGLOBIN 29.6 pg (25.0-35.0); MEAN CORPUSCULAR HGB CONC 33.2 g/dl (31.0-37.0); MEAN PLATELET VOLUME 10.8 fl (7.0-11.0); RBC 4.25 10^6/uL (3.5-6.1); RED CELL DISTRIBUTION WIDTH 13.6 % (11.5-14.5); WHITE BLOOD COUNT 14.8 10^3/uL (4.5-11.0)
[2018-07-15 08:07] LABS: ALB/GLOB RATIO 1.1 (1.1-1.8); ALBUMIN 4.1 g/dL (3.0-4.8); ALT/SGPT 30 U/L (7-56); AST/SGOT 59 U/L (14-36); BLOOD UREA NITROGEN 14 mg/dL (7-21); CALCIUM 8.8 mg/dL (8.4-10.5); GFR NON-AFRICAN AMERICAN > 60
[2018-07-15] MEDS: guaiFENesin 100 mg/5 ml Syrup UD PO PRN ×2 (09:20→22:03)
[2018-07-15] MEDS: cefTRIAXone 1 gm 1 GM/100 ML BAG IVPB SCH (09:22)
[2018-07-15] MEDS ORDERED: Potassium Chloride 20 mEq ER Tab PO ONE (10:15)
--- NOTE | 2018-07-15 10:50 | CARD ---
APPROVED REPORT Date of service: 07/14/2018 EKG Measurement Heart [id number] <Conclusion> Normal sinus rhythm Normal ECG
--- NOTE | 2018-07-15 14:01 | CON ---
DATE OF CONSULTATION: 07/15/2018 REASON FOR DICTATION: Covering for Dr. Remi Rausch REASON FOR CONSULTATION: Cardiac evaluation, admitted with abdominal pain and chest pain radiating to the chest. BRIEF CLINICAL HISTORY: This is a 58-year-old obese female with past medical history significant for hypertension and hyperlipidemia, cough, history of H. pylori, history of cholecystectomy many years ago, admitted with abdominal pain and sometimes the pain radiates to the chest. She denies any dyspnea on exertion or chest pain on exertion. PAST HISTORY: Significant for obesity, hypertension, hyperlipidemia, history of cough. PAST SURGICAL HISTORY: Significant for cholecystectomy many years ago and two sections many years ago. FAMILY HISTORY: Unknown. SOCIAL HISTORY: Denies any history of alcohol abuse. CURRENT MEDICATIONS: The patient at home was taking Protonix 40 mg daily, metoprolol tartrate 25 mg daily, losartan/hydrochlorothiazide 100/12.5 mg daily, ibuprofen 400 mg daily, atorvastatin 40 mg daily, aspirin 81 mg daily. ALLERGIES: NO KNOWN DRUG ALLERGIES. REVIEW OF SYSTEMS: As per HPI. PHYSICAL EXAMINATION: VITAL SIGNS: Height of the patient is 5 feet 3 inches. Weight of the patient is 150 pounds. Body mass index 26.6 kg/m2. Temperature 99.9, heart rate 96, blood pressure 118/71. HEENT: PERRLA. Extraocular muscles intact. NECK: Supple. No thyromegaly. CHEST: Clear to auscultation. HEART: S1, S2, regular. ABDOMEN: Soft. EXTREMITIES: Clubbing, cyanosis negative. DIAGNOSTIC DATA: EKG shows normal sinus at 93. No acute ST-T changes noted. Blood Workup: WBC 14.8, hemoglobin 12.6, hematocrit 37.9, platelet count 283,00. Chemistry shows sodium 130, potassium 3.5, chloride 100, carbon dioxide 26, anion gap of 13, BUN 14, creatinine 0.9. Total bilirubin 1.3, AST 59, ALT 30, alkaline phosphate is 144, lipase 36, total protein 7.9, albumin 4.4, albumin-globulin ratio 1.1. Previous cardiac workup: The patient's EKG normal sinus in 2008 and 2016. The patient had an echocardiography on 11/07/2016 that revealed normal LV function, ejection fraction within normal limit, mild mitral regurgitation reported, and normal tricuspid valve with RVSP systolic pressure 29 reported, calculated ejection fraction 55% reported. Troponin remains negative. IMPRESSION: A 58-year-old female with past medical history significant for hypertension, hyperlipidemia, history of cholecystectomy, admitted with abdominal pain. Her troponin remains negative as well as EKG is pretty benign. Last echo showed preserved LV function in 2017. RECOMMENDATIONS: Chest pain is atypical. The patient came in with elevated WBC. Continue evaluation per Dr. Chew to rule out UTI. May consider GI evaluation. We will supplement potassium. We will get echo to asses LV function, lipid profile, TSH, hemoglobin A1c and we will transfer care tomorrow, Monday, to Dr. Remi Rausch. Because of multiple risk factors, suggest a stress test as outpatient in 2-4 weeks when the symptoms of acute abdominal pain subside. Thank you Dr. Conte for providing us the opportunity in taking care of the patient. Elizabeth Najera MD
--- NOTE | 2018-07-15 14:37 | PN ---
DATE: 07/15/2018 SUBJECTIVE: She is resting comfortably in bed, slept fairly well last night. MEDICATIONS: She is on aspirin, Cozaar, Lipitor, Lopressor, Microzide, Motrin, Protonix IV, Robitussin, Rocephin, and IV fluids. At times, she is feeling better. She is feeling a little bit more comfortable than when she came in. PHYSICAL EXAMINATION: VITAL SIGNS: She has a 98.3 temperature, it was as high as 99.9, 85 pulse, 118/75 blood pressure, 18 respiratory rate, and 95% O2 sat on room air. HEENT: Head: Atraumatic and normocephalic. HEART: Regular rate. LUNGS: Decreased breath sounds. ABDOMEN: Soft, obese, nontender. EXTREMITIES: No edema. LABORATORY DATA: She has a 14.8 white count, it was as high as 17.6, it is coming down nicely; hemoglobin 12.6; hematocrit 37.9; and platelets of 283. She has a 136 sodium, potassium is 3.5, BUN is 14, creatinine 0.9 which came back to normal. She did have acute kidney injury when she came in, it now improved. GFR is greater than 60. Sugar is 112. Calcium is 8.8. Total bili is 1.3. AST is 59, ALT is 30, alk phos is 144 ordered, total creatine kinase that was not ordered. Total protein is 7.9. Urine was large bacteria with gram-negative rods in the urine. PLAN: We will continue with the IV antibiotics as per Infectious Disease. Check her labs tomorrow. I do think she is improving, I want her out of bed to chair and she is eating better. a few things coming on. She has a rhabdo, UTI, renal insufficiency, acute kidney injury, leukocytosis, low potassium and a cough. Henry Conte DO [facility]
--- NOTE | 2018-07-15 14:45 | CON ---
DATE OF CONSULTATION: 07/15/2018 The patient is seen earlier today in Room 571. CHIEF COMPLAINT: The patient was admitted initially with chest pain x4 days. HISTORY OF PRESENT ILLNESS: This is a 58-year-old female with a history of hypertension, high cholesterol, complaining of cough and chest pain x4 days. No fevers, no chills, no nausea, no vomiting. There is dysuria and frequency, although she had dismissed those symptoms. The patient also has depression and an unusual affect. PAST MEDICAL HISTORY: Significant for anemia, positive for H. pylori, high cholesterol, depression, and hypertension. PAST SURGICAL HISTORY: Cholecystectomy and . MEDICATIONS AT HOME: Protonix, Lopressor, losartan, Motrin, atorvastatin and aspirin. ALLERGIES: THE PATIENT HAS NO KNOWN ALLERGIES. REVIEW OF SYSTEMS: A 12-point review of systems is performed. PHYSICAL EXAMINATION: GENERAL: The patient is in bed in no acute distress. VITAL SIGNS: Temperature of 99.9, heart rate of 96, respiratory rate of 18, blood pressure of 134/59, saturation at 95%, saturation down to 94. HEENT: Unremarkable. NECK: Supple. LUNGS: Decreased breath sounds. HEART: Normal S1, S2. ABDOMEN: Soft, nontender. No organomegaly. No rebound, no guarding, no masses. LABORATORY EXAMINATION: White count of 17,000, hemoglobin of 12, platelets of 276,000. Chemistries reveal a BUN of 23, creatinine of 1.4. CK is elevated. AST is elevated. Alk phos 144. Urinalysis reveals 0-2 wbc's, trace ketones, moderate blood, trace leukocyte esterase, large bacteria. Microbiology reveals a gram-negative adwoa. The patient had a chest x-ray, which was negative. Had a CAT scan of the abdomen and pelvis, which was without contrast, which was also negative. ASSESSMENT AND PLAN: This is a 58-year-old female with #1 severe sepsis with gram-negative adwoa, urine as the source, who is symptomatic with acute kidney injury with change in the creatinine from 1.0, 1.1, and up to 1.4. We will treat the patient with ceftriaxone and check on the blood culture results and the identification of the gram-negative adwoa. Recommend an HIV test because of the patient's age and hepatitis profile because of the LFT elevations. We will make further recommendations upon availability of initial culture results and response and follow the white count and serology. Poli Chew MD
[2018-07-15] MEDS: Vancomycin 1gm in NS 250ml 1 GM/250 ML BAG IVPB SCH (23:06)
[2018-07-16] MEDS: guaiFENesin 100 mg/5 ml Syrup UD PO PRN ×2 (03:54→21:56)
[2018-07-16 07:31] LABS: BASO # 0.08 K/mm3 (0.0-2.0); BASO % 0.8 % (0.0-3.0); EOS # 0.5 (0.0-0.7); EOS % 4.9 % (1.5-5.0); HEMOGLOBIN 12.8 g/dL (12.0-16.0); LYMPH % 28.8 % (22.0-35.0); MEAN CELL VOLUME 89.4 fl (80.0-105.0); MEAN CORPUSCULAR HEMOGLOBIN 29.4 pg (25.0-35.0); MEAN CORPUSCULAR HGB CONC 32.9 g/dl (31.0-37.0); MEAN PLATELET VOLUME 10.1 fl (7.0-11.0); MONO # 0.9 (0.1-0.6); MONO % 8.5 % (1.0-6.0); RBC 4.35 10^6/uL (3.5-6.1); RED CELL DISTRIBUTION WIDTH 13.5 % (11.5-14.5); WHITE BLOOD COUNT 10.4 10^3/uL (4.5-11.0)
[2018-07-16 07:59] LABS: ALBUMIN 3.9 g/dL (3.0-4.8); ALT/SGPT 35 U/L (7-56); AST/SGOT 53 U/L (14-36); BLOOD UREA NITROGEN 16 mg/dL (7-21); CALCIUM 9.2 mg/dL (8.4-10.5); GFR NON-AFRICAN AMERICAN > 60; HDL CHOLESTEROL 28 mg/dL (29-60)
[2018-07-16 08:05] LABS: LDL CHOLESTEROL 86 mg/dL (0-129)
[2018-07-16 08:12] LABS: CK MB% 0.6 % (2.5-3.0); CK-MB 6.4 ng/mL (0.0-3.6)
[2018-07-16 08:46] LABS: HEPATITIS B SURFACE AG Negative (NEGATIVE)
[2018-07-16 08:52] LABS: HEPATITIS A IGM NEGATIVE (NEGATIVE); HEPATITIS B CORE AB NEGATIVE (NEGATIVE)
[2018-07-16 09:03] LABS: HEPATITIS C ANTIBODY NEGATIVE (NEGATIVE)
[2018-07-16] MEDS: cefTRIAXone 1 gm 1 GM/100 ML BAG IVPB SCH (09:32)
[2018-07-16] MEDS: Sodium Chloride 0.45% 1,000 ML IV SCH (09:33)
--- NOTE | 2018-07-16 10:19 | PN ---
DATE: 07/16/2018 SUBJECTIVE: The patient is in bed in no acute distress, nontoxic. PHYSICAL EXAMINATION: VITAL SIGNS: Temperature is 97, blood pressure is 130/80, respiratory rate of 18. HEENT: Unremarkable. NECK: Supple. LUNGS: Have decreased breath sounds. HEART: Normal S1, S2. ABDOMEN: Soft, nontender. LABORATORY EXAMINATION: Reveals a white count is down to 10,000, hemoglobin of 12. Chemistries are noted. CK is down to 1152 in the urinalysis is noted. Microbiology reveals E. coli in the urine that is pansensitive and blood cultures are Gram-positive cocci. One bottle identification, sensitivity is pending. The second blood culture is negative and repeat blood cultures are pending. HIV is pending. The patient currently on vancomycin and ceftriaxone. ASSESSMENT AND PLAN: This 58-year-old female with; 1. Severe sepsis with Escherichia coli in the urine as the source with acute kidney injury and Gram-positive cocci bacteremia, most likely a contamination. She denies any intravascular devices awaiting for identification and sensitivity of the Gram-positive cocci. There is a coag-negative Staphylococcus recommend no treatment would be a contamination and the patient maybe switch to p.o. antibiotics for the urinary tract infection and we will follow with you. Poli Chew MD
[2018-07-16] MEDS: Vancomycin 1gm in NS 250ml 1 GM/250 ML BAG IVPB SCH ×2 (10:26→21:55)
--- NOTE | 2018-07-16 11:21 | PN ---
DATE: 07/16/2018 SUBJECTIVE: I saw her in her room. The IV antibiotics are running. She tells me she is feeling a little bit better, but not there yet. PHYSICAL EXAMINATION: VITAL SIGNS: She has a 97.9 temperature, 74 pulse, 134/84 blood pressure, 20 respiratory rate, 97% O2 sat on room air. HEENT: Head is atraumatic, normocephalic. HEART: Regular rate. LUNGS: Decreased breath sounds. ABDOMEN: Soft, obese. EXTREMITIES: No edema. LABORATORY DATA: She has a 10.4 white count, finally got under 10.5, it is the first time it improved, it is the first good day, 12.8 hemoglobin, 38.9 hematocrit with 309 platelets. Sodium 139, potassium 4, BUN is 16, creatinine 0.9. GFR is greater than 60, sugar is 119, calcium is 9.2, phosphorous 2.8, magnesium 2, total bili is 0.5. AST is 53, ALT is 35, alk phos 110. Total creatine kinase 1152, improving. CK 6.4, total protein 7.8, albumin is 3.9. TSH is 2.16. Urine has large bacteria, negative for hepatitis screen. Gram-positive cocci in blood and Escherichia coli in the urine. This is a new finding that the blood culture came back positive. MEDICATIONS: She is on aspirin, Cozaar, Lipitor, Lopressor, Microzide, Motrin, Protonix, Robitussin, Rocephin, IV fluids and vancomycin IV. ASSESSMENT AND PLAN: sepsis. Continue with aggressive treatment and care as per Infectious Disease. Henry Conte DO [facility]
--- NOTE | 2018-07-16 12:55 | PN ---
DATE: 07/16/2018 REASON FOR DICTATION: Covering for Dr. Remi Rausch. REASON FOR CONSULTATION: Cardiac evaluation, admitted with abdominal pain and chest pain radiating to the chest from abdomen. SUBJECTIVE: The patient denies chest pain, shortness of breath or any palpitations, still feel very weak, and coughing. OBJECTIVE: GENERAL: Not in apparent distress, lying flat on the bed. VITAL SIGNS: Temperature afebrile. Heart rate 74, blood pressure 134/84. HEENT: PERRLA. Extraocular muscles intact. NECK: Supple. No carotid bruits or thyromegaly. CHEST: Clear to auscultation. HEART: S1, S2, regular. ABDOMEN: Soft. EXTREMITIES: Clubbing and cyanosis, negative. LABORATORY DATA: Blood workup: WBC 10.5, hemoglobin 12, hematocrit 38.9, platelet count 309. Chemistry shows sodium 130, potassium 4, chloride 102, carbon dioxide 27, anion gap of 14, BUN 16, creatinine 0.7. Blood culture, gram positive cocci, Escherichia coli . IMPRESSION: A 58-year-old female with past medical significant for history of for hypertension, hyperlipidemia, history of cholecystectomy, admitted with abdominal pain. Her troponin remains negative. EKG is pretty benign. Last echo preserved ejection fraction in 2017 possibly urinary tract infection and urosepsis. Blood cultures is positive with most likely with contamination. Repeat blood culture is pending. Continue broad-spectrum antibiotics. Echo tomorrow to see left ventricular function, to be read by Dr. Rausch. Suggest a stress test as outpatient in 2 to 4 weeks because of multiple comorbidity. We will transfer the care tomorrow to Dr. Remi Rausch. We will order another blood culture to rule out contamination. Further recommendation as continue atorvastatin. Continue losartan and continue metoprolol, hydrochlorothiazide. Her WBC is coming down admitting WBC 10.4. We will follow with you and transfer care tomorrow with Dr. Remi Rausch. Thank you Dr. Conte for providing us the opportunity in taking care of the patient, Alyson Jenkins. Elizabeth Najera MD
[2018-07-17 07:11] LABS: HEMOGLOBIN 11.8 g/dL (12.0-16.0); MEAN CELL VOLUME 89.1 fl (80.0-105.0); MEAN CORPUSCULAR HEMOGLOBIN 29.1 pg (25.0-35.0); MEAN CORPUSCULAR HGB CONC 32.7 g/dl (31.0-37.0); MEAN PLATELET VOLUME 9.7 fl (7.0-11.0); RBC 4.05 10^6/uL (3.5-6.1); RED CELL DISTRIBUTION WIDTH 13.4 % (11.5-14.5); WHITE BLOOD COUNT 9.7 10^3/uL (4.5-11.0)
[2018-07-17 07:37] LABS: ALBUMIN 3.5 g/dL (3.0-4.8); ALT/SGPT 34 U/L (7-56); AST/SGOT 40 U/L (14-36); BLOOD UREA NITROGEN 16 mg/dL (7-21); CALCIUM 9.2 mg/dL (8.4-10.5); GFR NON-AFRICAN AMERICAN > 60
[2018-07-17 07:48] LABS: CK-MB 3.8 ng/mL (0.0-3.6)
[2018-07-17] MEDS: cefTRIAXone 1 gm 1 GM/100 ML BAG IVPB SCH (09:27)
[2018-07-17] MEDS: guaiFENesin 100 mg/5 ml Syrup UD PO PRN ×2 (09:28→17:27)
[2018-07-17] MEDS: Vancomycin 1gm in NS 250ml 1 GM/250 ML BAG IVPB SCH (11:05)
--- NOTE | 2018-07-17 12:23 | PN ---
DATE: 07/17/2018 SUBJECTIVE: I saw her resting comfortably in bed this morning. She slept fairly well. She is being seen by Infectious Disease and Cardiology. She has a few things going on. She had severe sepsis, leukocytosis, acute kidney injury, rhabdomyolysis, hypertension, high cholesterol. She had abdominal pain. She is eating a little bit. PHYSICAL EXAMINATION VITAL SIGNS: She has a 98.2 temperature, 85 pulse, 119/81 blood pressure, 18 respiratory rate, and 99% O2 sat on room air. HEAD: Atraumatic, normocephalic. HEART: Regular rate. LUNGS: Decreased breath sounds but clear. ABDOMEN: Soft, obese. EXTREMITIES: No edema. LABORATORY DATA: She has a 9.7 white count, the best it has been, a 11.8 hemoglobin, 36.1 hematocrit with 301 platelets. She has a 140 sodium, potassium 3.7, BUN 16, creatinine 0.9, GFR is greater than 60, sugar is 121, calcium is 9.2. AST is 40, ALT is 34, alk phos 95, improving. There is a total creatinine kinase is down to 738, doing much better. Total protein is 7.1. TSH is 2.16. She had the UTI ordered. The hepatitis screens are negative. Micros; gram-positive cocci in the blood and E-coli in the urine. ASSESSMENT AND PLAN: She is being seen by Infectious Disease, Cardiology. As per Infectious Disease, continue with aggressive treatment and care, get out of bed to chair. Checking labs. Intravenous antibiotics. If once we can change it to tablets, I will discharge her. Continue with aggressive treatment and care. Thank you very much. Henry Conte DO
--- NOTE | 2018-07-17 13:40 | PN ---
DATE: 07/17/2018 SUBJECTIVE: The patient denies chest pain, denies abdominal pain. She is basically complaining of cough. PHYSICAL EXAMINATION: VITAL SIGNS: Blood pressure 120/80, heart rates in the 80s. NECK: Negative JVD. LUNGS: Without rales. HEART: Reveals S1, S2. EXTREMITIES: Without edema. LABORATORY DATA: BUN and creatinine unremarkable. The glucose is 121, hemoglobin is 11.8. IMPRESSION: 1. Resolution of chest pain. 2. No evidence for acute coronary syndrome. 3. Hypertension. 4. Hypercholesterolemia. 5. Borderline diabetes mellitus. Given these findings, there is no evidence of acute cardiac issues at this time. However, given her multiple cardiac risk factors, I have discussed with the patient about the need for a stress test once her acute issues resolved. Remi Rausch MD
[2018-07-17] MEDS: Sodium Chloride 0.45% 1,000 ML IV SCH ×2 (14:29→23:06)
[2018-07-17] MEDS: Cefpodoxime (Vantin) 200 mg Tab PO SCH ×2 (17:31→21:15)
--- NOTE | 2018-07-17 20:19 | CARD ---
APPROVED REPORT Date of service: 07/17/2018 EXAM: Two-dimensional and M-mode echocardiogram with Doppler and color Doppler. INDICATION Chest Pain 2D DIMENSIONS Left Atrium (2D)3.7 (1.6-4.0cm)IVSd1.1 (0.7-1.1cm) LVDd4.5 (3.9-5.9cm)PWd0.8 (0.7-1.1cm) LVDs2.9 (2.5-4.0cm)FS (%) 35.7 % LVEF (%)65.3 (>50%) M-Mode DIMENSIONS Aortic Root2.10 (2.2-3.7cm)Aortic Cusp Exc.1.50 (1.5-2.0cm) Aortic Valve AoV Peak [id number]/Elena Peak GR.12mmHg Mitral Valve E/A ratio0.0 TDI E/Lateral E'0.0E/Medial E'0.0 Tricuspid Valve TR Peak [id number] [id number] Peak Gr.15mmHg [id number] LEFT VENTRICLE The left ventricle is normal size. There is normal left ventricular wall thickness. The left ventricular function is normal. The left ventricular ejection fraction is within the normal range. There is normal LV segmental wall motion. Transmitral Doppler flow pattern is Grade I-abnormal relaxation pattern. RIGHT VENTRICLE The right ventricle is normal size. There is normal right ventricular wall thickness. The right ventricular systolic function is normal. ATRIA The left atrium size is normal. The right atrium size is normal. AORTIC VALVE The aortic valve is not well visualized. There is trace aortic regurgitation. There is no aortic valvular stenosis. MITRAL VALVE The mitral valve is normal in structure. Mitral regurgitation is trace to mild. There is no mitral valve stenosis. TRICUSPID VALVE The tricuspid valve is normal in structure. There is trace to mild tricuspid regurgitation. PULMONIC VALVE There is trace pulmonic valvular regurgitation. GREAT VESSELS The aortic root is normal in size. The IVC is normal in size and collapses >50% with inspiration. PERICARDIAL EFFUSION There is no pericardial effusion. <Conclusion> There is normal left ventricular wall thickness. The left ventricular function is normal. The left ventricular ejection fraction is within the normal range. There is normal LV segmental wall motion. Transmitral Doppler flow pattern is Grade I-abnormal relaxation pattern. There is trace aortic regurgitation. Mitral regurgitation is trace to mild. There is trace to mild tricuspid regurgitation.
--- NOTE | 2018-07-17 21:39 | PN ---
DATE: 07/17/2018 SUBJECTIVE: The patient is in bed, in no acute distress. Was seen earlier today. PHYSICAL EXAMINATION: VITAL SIGNS: Temperature is 98, blood pressure is 143/80, respiratory rate of 18. HEENT: Unremarkable. NECK: Supple. LUNGS: Have decreased breath sounds. HEART: Normal S1, S2. ABDOMEN: Soft, nontender. LABORATORY DATA: Reveals a white count of 9.6, hemoglobin of 11, platelets of 301. Chemistry reveals a BUN of 16, creatinine of 0.9. CK is noted. Urinalysis is noted. Serology is negative. Microbiology reveals coag-negative staph in the blood and E. Coli in the urine, which is pansensitive. Review of orders reveals the patient to be on vancomycin and ceftriaxone. Dr. Remi Rausch's note is reviewed. The patient's echo is pending. Chest x-ray is negative. Dr. Henry Conte's note is reviewed. ASSESSMENT AND PLAN: A 58-year-old female, admitted with severe sepsis with Escherichia coli and urine as the source with acute kidney injury, coag-negative staph bacteremia, most likely contamination. We will discontinue vancomycin and discontinue Rocephin, and use p.o. Vantin 200 mg p.o. b.i.d. x7 days. Poli Chew MD
[2018-07-17] MEDS ORDERED: guaiFENesin 100 mg/5 ml Syrup UD PO STA (23:46)
[2018-07-18 07:09] LABS: HEMOGLOBIN 12.3 g/dL (12.0-16.0); MEAN CELL VOLUME 89.5 fl (80.0-105.0); MEAN CORPUSCULAR HEMOGLOBIN 29.4 pg (25.0-35.0); MEAN CORPUSCULAR HGB CONC 32.8 g/dl (31.0-37.0); MEAN PLATELET VOLUME 9.6 fl (7.0-11.0); RBC 4.19 10^6/uL (3.5-6.1); RED CELL DISTRIBUTION WIDTH 13.6 % (11.5-14.5); WHITE BLOOD COUNT 9.7 10^3/uL (4.5-11.0)
[2018-07-18 07:19] LABS: ALBUMIN 3.7 g/dL (3.0-4.8); ALT/SGPT 30 U/L (7-56); AST/SGOT 46 U/L (14-36); BLOOD UREA NITROGEN 14 mg/dL (7-21); CALCIUM 9.3 mg/dL (8.4-10.5); GFR NON-AFRICAN AMERICAN > 60
[2018-07-18] MEDS ORDERED: Pantoprazole 40 mg EC Tab PO SCH (07:30)
[2018-07-18 07:57] VITALS: PULSE 71; RESP 20; TEMP 97.5; O2SAT 95
[2018-07-18] MEDS: Cefpodoxime (Vantin) 200 mg Tab PO SCH (09:02)
--- NOTE | 2018-07-18 09:10 | PN ---
DATE: 07/18/2018 SUBJECTIVE: The patient is seen earlier, in no acute distress, nontoxic. PHYSICAL EXAMINATION: VITAL SIGNS: On exam, temperature is 97, blood pressure is a 89/50, respiratory rate 18. HEENT: Unremarkable. NECK: Supple. HEART: Normal S1, S2. LUNGS: Have decreased breath sounds. ABDOMEN: Soft. LABORATORY DATA: Reveals a white count of 9.7, hemoglobin of 12. Chemistries reveals a BUN of 14, creatinine of 0.9. Urinalysis is noted. Serology is reviewed. Microbiology is noted and a coag-negative staphylococcus and one blood cultures and the patient has pansensitive Escherichia coli in the urine and review of orders reveals the patient noted to be on cefpodoxime 200 mg p.o. b.i.d. ASSESSMENT AND PLAN: This is a 58-year-old female who was admitted with severe sepsis with Escherichia coli, urine as a source and acute kidney injury, coag-negative staphylococcus bacteremia consistent with contamination with complete cefpodoxime 200 mg p.o. b.i.d. x7 days. Poli Chew MD
[2018-07-18 09:42] VITALS: BP 136/79
--- NOTE | 2018-07-19 03:05 | DS ---
HISTORY OF PRESENT ILLNESS: She is doing much better. She is feeling much better. She is walking better. She is eating better. No chest pain or shortness. No abdominal pain. She is on IV fluids, aspirin, Cozaar, Lipitor, Lopressor, Microzide, ibuprofen, Protonix, Robitussin, Tylenol and now she is changed over Vantin p.o. from IV antibiotics. PHYSICAL EXAMINATION VITAL SIGNS: She has a 97.5 temperature, 71 pulse, 89/59 blood pressure and 128/80 blood pressure, 20 respiratory rate and 95% O2 sat. HEENT: Head is atraumatic and normocephalic. HEART: Regular rate. LUNGS: Decreased breath sounds, but clear to auscultation. No wheezes or rhonchi or rales. ABDOMEN: Soft and obese. EXTREMITIES: No edema. She tells me she is feeling much better. She is looking forward to leaving. LABORATORY DATA: She has a 9.7 white count, 12.3 hemoglobin, 37.5 hematocrit with 347 platelets. A 139 sodium, potassium 3.9, BUN is 40, creatinine 0.9, GFR is greater than 60, sugar is 130, calcium is 9.3, total bili is 0.4, AST is 46, ALT is 30, alk phos 85. Last total creatine kinase is 738 coming down nicely. Total protein 7.3. TSH 2.16. She was here being seen by Infectious Disease and Cardiology. She is quite well overall. She has severe sepsis, acute kidney injury and she will go home on Vantin for 7 days. She should followup in the office in the next 5 days. Henry Conte DO
== END 2018-07-18 11:36 | disposition home or self-care (01) | DRG 872 ==
LOC: ED 11:00 → ERH 15:27 → 5RSO 16:19 → ERH 16:20 → 5RSO 17:14
PROVIDERS: ADMIT Family Medicine; ATTEND Family Medicine
DX: A41.51 Sepsis due to Escherichia coli [E. coli] (principal); N39.0 Urinary tract infection, site not specified; N17.9 Acute kidney failure, unspecified; M62.82 Rhabdomyolysis; R65.20 Severe sepsis without septic shock; I10 Essential (primary) hypertension; E78.00 Pure hypercholesterolemia, unspecified; E78.5 Hyperlipidemia, unspecified; R73.03 Prediabetes